=== PATIENT | male | born 1975 | race Caucasian/White ===

== ENCOUNTER 2023-03-31 02:52 | Emergency (ER) | payer MEDICAID ==
[~2023-03-31] VITALS: Ht 190.5 cm; Wt 136.4 kg
[2023-03-31 03:20] VITALS: TEMP 97.5
[2023-03-31] MEDS ORDERED: diphenhydrAMINE 50 mg/ml inj IM ONE (03:45)
[2023-03-31] MEDS ORDERED: LORazepam 2 mg/ml vial IM ONE ×2 (03:45→10:15)
[2023-03-31] MEDS ORDERED: haloperidol lactate 5mg/ml inj IM ONE ×2 (03:45→10:15)
[2023-03-31] MEDS ORDERED: HYDR-3973 PO (05:01)
[2023-03-31] MEDS ORDERED: MECL-302 PO (05:01)
[2023-03-31] MEDS ORDERED: HYDROcodone/acetaminophen 10/325mg tab PO PRN (05:25)
[2023-03-31 05:38] VITALS: BP 131/91; PULSE 91; RESP 12; O2SAT 92
[2023-03-31 05:40] LABS: BASOPHILS # (AUTO) 0.1 X10'3 (0-0.2); BASOPHILS % (AUTO) 1.4 % (0-1); EOSINOPHILS # (AUTO) 0.1 X10'3 (0-0.9); EOSINOPHILS % (AUTO) 1.1 % (0-6); HEMATOCRIT 43.2 % (42.0-52.0); HEMOGLOBIN 14.2 g/dl (14.0-17.9); LYMPHOCYTES # (AUTO) 2.5 X10'3 (1.1-4.8); LYMPHOCYTES % (AUTO) 33.8 % (21-51); MEAN CORPUSCULAR HEMOGLOBIN 30.9 PG (27.0-31.0); MEAN CORPUSCULAR HGB CONC 32.9 g/dL (33.0-36.5); MEAN CORPUSCULAR VOLUME 93.9 FL (78-98); MEAN PLATELET VOLUME 8.4 FL (7.4-10.4); MONOCYTES # (AUTO) 0.8 X10'3 (0-0.9); MONOCYTES % (AUTO) 10.7 % (2-12); NEUTROPHILS # (AUTO) 3.9 X10'3 (1.8-7.7); PLATELET COUNT 247 X10'3 (140-440); RED CELL DISTRIBUTION WIDTH 13.7 % (11.5-14.5); WHITE BLOOD COUNT 7.3 X10'3 (4.5-11.0)
[2023-03-31 05:52] LABS: ALANINE AMINOTRANSFERASE 73 U/L (12-78); ALKALINE PHOSPHATASE 97 IU/L (46-116); ANION GAP 12 (8-16); ASPARTATE AMINO TRANSFERASE 42 U/L (10-37); BILIRUBIN,TOTAL 0.5 MG/DL (0.1-1.0); BLOOD UREA NITROGEN 16 MG/DL (7-18); BUN/CREATININE RATIO 17.2 (10.0-20.0); CALCIUM 8.7 MG/DL (8.5-10.1); CHLORIDE 99 MMOL/L (99-107); CREATININE 0.93 MG/DL (0.60-1.10); GLUCOSE 115 MG/DL (70-104); POTASSIUM 3.3 MMOL/L (3.5-5.1); SODIUM 134 MMOL/L (135-145); TOTAL CARBON DIOXIDE 23.3 MMOL/L (24-32); eCRCL 116 ML/MIN; eGFR 87 ML/MIN
[2023-03-31 06:01] LABS: THYROID STIMULATING HORMONE 3.11 ulU/ml (0.34-4.50)
[2023-03-31 06:18] LABS: ETHANOL < 10 MG/DL (<10)
[2023-03-31] MEDS ORDERED: meclizine 12.5mg tablet PO SCH (08:00)
[2023-03-31 12:37] LABS: URINE AMPHETAMINE SCREEN NEGATIVE (Neg); URINE BARBITUATE SCREEN NEGATIVE (Neg); URINE BENZODIAZEPINES SCREEN NEGATIVE (Neg); URINE CANNABINOID SCREEN POSITIVE (Neg); URINE COCAINE SCREEN NEGATIVE (Neg); URINE METHADONE SCREEN NEGATIVE (Neg); URINE OPIATE SCREEN POSITIVE (Neg); URINE PHENCYCLIDINE SCREEN NEGATIVE (Neg)
[2023-03-31] MEDS ORDERED: HYDROcodone/acetaminophen 10/325mg tab PO ONE (15:00)
== END 2023-03-31 16:43 | disposition left against medical advice (07) ==
LOC: ER 02:54
DX: U07.1 COVID-19 (principal); R45.1 Restlessness and agitation
CPT/HCPCS: 36415; 80053; 80305; 80320; 84443; 85025; 87811; 96372; 99285; J1200; J1630; J2060